=== PATIENT | male | born 1940 | race Caucasian/White ===

== ENCOUNTER 2022-07-21 22:47 | Emergency (ER) | payer MEDICARE, SELFPAY ==
[2022-07-21 22:52] VITALS: BP 160/93; PULSE 65; RESP 12; TEMP 36.7; O2SAT 98
--- NOTE | 2022-07-21 23:55 | ED.GENADULT ---
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 The patient states that he ate the salmon it smelled a little funny and tasted a little pepper the patient states afterwards he started having severe abdominal cramping felt very nauseated and then ended up calling EMS because he was feeling that way. In the back of the ambulance he was given an antiemetic he proceeded to vomit and since he has vomited he feels better. The patient denies chest pain denies abdominal pain denies any other complaint at this time Related Data Allergies Allergy/AdvReac Type Severity Reaction Status Date / Time No Known Allergies Allergy Verified 07/21/22 22:58 Review of Systems Review of Systems: A 10 system review of systems was completed on the patient and is negative except for what is stated in the HPI. Nursing and ancillary documentation was reviewed. Exam Narrative: GENERAL: Well-appearing, well-nourished, and in no acute distress. HEAD: Normocephalic, atraumatic. EYES: PERRLA and EOMI. ENT: Nares clear, no rhinorrhea or epistaxis. Mucous membranes moist. NECK: Supple. CHEST: Clear to auscultation. No respiratory distress. HEART: Regular rate and rhythm. No murmur heard. Normal peripheral pulses. ABDOMEN: Soft, nontender, nondistended, normal active bowel sounds. EXTREMITIES: Normal range of motion. No edema. SKIN: Warm, dry, no rash. NEURO: No focal deficits. Alert and oriented x3. PSYCH: Normal mood and affect. Course Course Emergency Course: The patient is feeling much better at this time and request that he can go home. The patient states that he will return to the emergency department if he has worsening symptoms. The patient has a nontoxic nonfocal exam at this time. The patient was instructed to return precautions. Vital Signs Vital signs: Vital Signs Temperature 36.7 C 07/21/22 22:52 Pulse Rate 65 07/21/22 22:52 Respiratory Rate 12 07/21/22 22:52 Blood Pressure 160/93 H 07/21/22 22:52 Pulse Oximetry 98 07/21/22 22:52 Oxygen Delivery Room Air 07/21/22 22:52 Temperature 36.7 C 07/21/22 22:52 Pulse Rate 65 07/21/22 22:52 Respiratory Rate 12 07/21/22 22:52 Blood Pressure 160/93 H 07/21/22 22:52 Pulse Oximetry 98 07/21/22 22:52 Oxygen Delivery Room Air 07/21/22 22:52 Medical Decision Making Vital Signs Vital Signs: Vital Signs Temperature 36.7 C 07/21/22 22:52 Pulse Rate 65 07/21/22 22:52 Respiratory Rate 12 07/21/22 22:52 Blood Pressure 160/93 H 07/21/22 22:52 Pulse Oximetry 98 07/21/22 22:52 Oxygen Delivery Room Air 07/21/22 22:52 Temperature 36.7 C 07/21/22 22:52 Pulse Rate 65 07/21/22 22:52 Respiratory Rate 12 07/21/22 22:52 Blood Pressure 160/93 H 07/21/22 22:52 Pulse Oximetry 98 07/21/22 22:52 Oxygen Delivery Room Air 07/21/22 22:52 Discharge Plan Discharge Clinical Impression: Gastroenteritis Patient Disposition: Home, Self-Care Condition: Stable Instructions: Antibiotic Form, Abdominal Pain (ED), Acute Nausea and Vomiting (DC), Gastroenteritis (ED) Follow-up/Referrals: PHYSICIAN NOT ON STAFF,NONSTAFF [Primary Care Provider] - Time of Disposition: 23:57
== END 2022-07-22 | disposition home or self-care (01) ==
PROVIDERS: Emergency Provider Emergency Medicine
DX: K52.9 Noninfective gastroenteritis and colitis, unspecified (principal)
CPT/HCPCS: 99281